=== PATIENT | male | born 1970 | race Caucasian/White ===

== ENCOUNTER 2023-09-21 09:13 | Emergency (ER) | payer OTHER, SELFPAY ==
[2023-09-21 09:23] VITALS: BP 145/87
[2023-09-21 09:32] VITALS: BP 109/76
[2023-09-21 09:43] LABS: Glucose - Point of Care 81 mg/dl (70-99)
[2023-09-21 09:44] LABS: % Eosinophils 0.5 % (0-6); % Immature Granulocytes 0.9 % (0-0.5); % Lymphocytes 13.4 % (20.5-51.1); % Monocytes 8.3 % (1.7-9.3); % Neutrophils 75.9 % (42.2-75.2); Absolute Basophils 0.1 10^3/uL (0-0.2); Absolute Immature Granulocytes 0.1 10^3/uL (0-0.05); Absolute Lymphocytes 1.1 10^3/uL (1.2-3.4); Absolute Monocytes 0.7 10^3/uL (0.1-0.6); Absolute Neutrophils 6.1 10^3/uL (1.4-6.5); Hematocrit 44.2 % (39.0-52.0); Hemoglobin 15.8 g/dL (13.0-18.0); Mean Corp Hgb Conc. 35.7 g/dL (33.0-37.0); Mean Corpuscular Hgb 32.3 pg (27.0-31.0); Mean Corpuscular Volume 90.4 fL (80.0-94.0); Mean Platelet Volume 9.6 fL (7.4-10.4); Nucleated Red Blood Cells % 0 % (-); Platelet Count 297 10^3/uL (130-400); Red Blood Cell Count 4.89 10^6/uL (4.70-6.10); Red Cell Dist. Width 12.3 % (11.5-14.5)
--- NOTE | 2023-09-21 09:48 | ED.GENMED ---
History of Present Illness
<Yolie Collier PA-C - Last Filed: 09/23/23 14:14>
General
Chief Complaint: Breathing Problem
Source: patient
Exam Limitations: none
Time Seen by Provider: 09/21/23 09:31
Nursing documentation reviewed up to this point in time: agreed with
History of Present Illness
History of Present Illness:
Patient is a 53 year old male presenting to the emergency department for evaluation of shortness of breath. Patient states symptoms initially started 2 days ago but are worse last night and he was unable to sleep. He endorses feeling as he cannot
catch his breath. He also endorses a pressure sensation in his left chest. He feels that he is going to faint. Patient states that he feels like he is having an anxiety attack. He does state that he has never had a panic attack quite to this
degree before�but did take a Xanax at home prior to coming to the emergency department.
Patient denies any headache, numbness/tingling in legs, visual changes. Patient denies any abdominal pain. Patient denies any fevers or chills.
Patient denies any personal or family history of cardiovascular disease.
Review of Systems
<Yolie Collier PA-C - Last Filed: 09/23/23 14:14>
Review of Systems
Allergies reviewed?: Yes
All Other Systems: ROS reviewed and negative except as documented in HPI and ROS
Phy Exam
<Yolie Collier PA-C - Last Filed: 09/23/23 14:14>
Physical Exam
Physical Exam:
Vitals: Mildly tachycardic, otherwise vital signs stable
General: Patient is very anxious appearing
Skin: Warm and dry, no rashes or lesions
Head: Normocephalic, atraumatic
Eyes: Sclera nonicteric. EOMs intact. No nystagmus.
Throat: Protecting airway
Neck: Normal ROM, no cervical spine tenderness, no meningismus. Trachea midline
Cardiac: Mildly tachycardic, normal rhythm, no murmurs.
Pulm: Normal respiratory effort, no wheezes, rales, rhonchi heard on exam.
Abdomen: Abdomen soft. No abdominal tenderness.
Extremities: No evidence of cyanosis or edema. Great distal pulses
Neuro: AAOx3. CN II-XII intact. No focal neurologic deficits.
Psychiatric: Anxious.
Scores
<Yolie Collier PA-C - Last Filed: 09/23/23 14:14>
Heart Failure Risk
Heart Failure Risk Score: Not Applicable
Course
<Yolie Collier PA-C - Last Filed: 09/23/23 14:14>
Orders/Labs/Results
Orders:
Orders
09/21/23 09:16
EKG [Electrocardiogram (*1)] Urgent
Reason for Study: Chest Pain
09/21/23 09:17
EKG- Treatment ONCE
09/21/23 09:37
CMP [Comprehensive Metabolic Panel] Urgent
09/21/23 09:38
CBC/With Diff [Complete Blood Count/With Diff] Urgent
TSH Reflex To Free T4 Urgent
Comment: ADD ON
Troponin I Urgent
09/21/23 10:00
0.9% Sodium Chloride 1000 ml [Nss] 1,000 ml IV BOLUS
Lorazepam [Ativan] 1 mg IV NOW STA
09/21/23 10:01
Add On- LAB Urgent
Tests Added?: TSH w/ reflex to T4
09/21/23 10:03
CXR Port [CR Chest Portable - 1 View] Urgent
Comment:
Reason For Exam: sob
Reason Study Needs to be Portable: Unable to Transport
09/21/23 10:12
CT Chest Pe Study Urgent
Comment:
Reason For Exam: shortness of breath, chest pain
Abnormal Lab Results
09/21/23 09/21/23
09:37 09:38
MCH 32.3 H pg
(27.0-31.0)
Abs Immat Gran (auto) 0.1 H 10^3/uL
(0-0.05)
Absolute Lymphs (auto) 1.1 L 10^3/uL
(1.2-3.4)
Absolute Monos (auto) 0.7 H 10^3/uL
(0.1-0.6)
Immature Gran % 0.9 H %
(0-0.5)
Neutrophils % 75.9 H %
(42.2-75.2)
Lymphocytes % 13.4 L %
(20.5-51.1)
Sodium 133 L mmol/L
(135-145)
Carbon Dioxide 31 H mmol/L
(22-30)
BUN 21 H mg/dl
(9-20)
Creatinine 1.8 H mg/dL
(0.7-1.3)
AST 63 H U/L
(17-59)
ALT 64 H U/L
(0-50)
09/21/23 09:38
09/21/23 09:37
Vital Signs
Initial and Last Documented VS:
Initial Vital Signs
Temp Pulse Resp BP Pulse Ox
98.7 F 103 18 145/87 100
09/21/23 09:23 09/21/23 09:23 09/21/23 09:23 09/21/23 09:23 09/21/23 09:23
Last Documented Vital Signs
Temp Pulse Resp BP Pulse Ox
98.7 F 95 14 132/96 96
09/21/23 09:23 09/21/23 13:15 09/21/23 13:15 09/21/23 11:00 09/21/23 12:15
<Brice Eagle MD - Last Filed: 09/21/23 10:35>
Orders/Labs/Results
Orders:
Orders
09/21/23 09:16
EKG [Electrocardiogram (*1)] Urgent
Reason for Study: Chest Pain
09/21/23 09:17
EKG- Treatment ONCE
09/21/23 09:37
CMP [Comprehensive Metabolic Panel] Urgent
09/21/23 09:38
CBC/With Diff [Complete Blood Count/With Diff] Urgent
TSH Reflex To Free T4 Urgent
Comment: ADD ON
Troponin I Urgent
09/21/23 10:00
0.9% Sodium Chloride 1000 ml [Nss] 1,000 ml IV BOLUS
Lorazepam [Ativan] 1 mg IV NOW STA
09/21/23 10:01
Add On- LAB Urgent
Tests Added?: TSH w/ reflex to T4
09/21/23 10:03
CXR Port [CR Chest Portable - 1 View] Urgent
Comment:
Reason For Exam: sob
Reason Study Needs to be Portable: Unable to Transport
09/21/23 10:12
CT Chest Pe Study Urgent
Comment:
Reason For Exam: shortness of breath, chest pain
Abnormal Lab Results
09/21/23 09/21/23
09:37 09:38
MCH 32.3 H pg
(27.0-31.0)
Abs Immat Gran (auto) 0.1 H 10^3/uL
(0-0.05)
Absolute Lymphs (auto) 1.1 L 10^3/uL
(1.2-3.4)
Absolute Monos (auto) 0.7 H 10^3/uL
(0.1-0.6)
Immature Gran % 0.9 H %
(0-0.5)
Neutrophils % 75.9 H %
(42.2-75.2)
Lymphocytes % 13.4 L %
(20.5-51.1)
Sodium 133 L mmol/L
(135-145)
Carbon Dioxide 31 H mmol/L
(22-30)
BUN 21 H mg/dl
(9-20)
Creatinine 1.8 H mg/dL
(0.7-1.3)
AST 63 H U/L
(17-59)
ALT 64 H U/L
(0-50)
09/21/23 09:38
09/21/23 09:37
Vital Signs
Initial and Last Documented VS:
Initial Vital Signs
Temp Pulse Resp BP Pulse Ox
98.7 F 103 18 145/87 100
09/21/23 09:23 09/21/23 09:23 09/21/23 09:23 09/21/23 09:23 09/21/23 09:23
Last Documented Vital Signs
Temp Pulse Resp BP Pulse Ox
98.7 F 95 14 132/96 96
09/21/23 09:23 09/21/23 13:15 09/21/23 13:15 09/21/23 11:00 09/21/23 12:15
<Yolie Collier PA-C - Last Filed: 09/23/23 14:14>
MDM/Problems Addressed
Differential Diagnosis Includes:
Not limited to: Panic attack, hyperthyroidism, thyroid storm, pneumothorax, PE, ACS
MDM/Problems Addressed:
53 year old male presenting with shortness of breath and left-sided chest pressure ongoing for the past 2 days with acute worsening last night. Not exertional. Patient mildly tachycardic on arrival otherwise vital signs are stable. Physical exam
as above. He is extremely anxious appearing. Lungs are clear bilaterally. Heart mildly tachycardic although normal rhythm. No lower extremity edema, erythema, or tenderness. Abdomen soft and nontender. An EKG obtained in triage shows sinus
tachycardia but any acute ischemic changes. A portable chest x-ray was obtained at bedside without any acute abnormalities. No pneumothorax.
Highly suspicious for panic attack/anxiety as etiology of shortness of breath although will obtain labs and CTA chest to rule out other cardio/pulmonary etiologies. Will give patient 1 mg IV Ativan. Closely monitor and reassess.
Labs noted. Renal insufficiency noted on labs with a creatinine of 1.8 and mildly decreased GFR. There is no prior values to compare to. Patient was given a liter of IV fluids. Troponin is normal. Given symptoms started initially 2 days
ago�this is sufficient to rule out acute IN. TSH is also within normal limits. CTA chest shows no acute cardio/pulmonary abnormalities.
Patient is much more calm and feels much better following Ativan. Workup here has been essentially negative. Suspect symptoms likely related to anxiety/panic attack. Did discuss renal insufficiency with patient and after discussion feel this may
be related to patient's supplements he takes for working out. Advised patient to avoid any further creatine/workout supplements, NSAIDs, other nephrotoxins at this time. He will follow-up with his primary care provider for further
evaluation/repeat lab work. Instructed patient to take Xanax as he has been prescribed his PCP at home. Return precautions discussed. Patient seen with attending physician
Chronic conditions affecting care:
N/A
Acute Exacerbation and/or Progression of Chronic Illness:
N/A
<Yolie Collier PA-C - Last Filed: 09/23/23 14:14>
*Radiology
Radiology exam reviewed: preliminary read by ED provider (No acute disease) and radiology read reviewed
*Pulse Oximetry
Patient hypoxic: no
*EKG
Interpreted by ED Provider?: Yes
EKG Intrepretation Date: 09/21/23
Interpretation: abnormal
Comparison EKG: no comparison EKG present
Heart Rate: 103
Rate: tachycardiac
Rhythm: sinus
[place]: normal axis
Interval: normal interval
QRS Pattern: normal QRS
Ischemia: no ischemia
*Landscape Gardener Interpretation
Rate: tachycardiac
Interpretation: abnormal
Heart Rate: 108
Rhythm: sinus
*Critical Care Note
Total Time (30-74mins, 75-104mins- exclusive of procedures): Not Applicable
ED Attending Note
<Yolie Collier PA-C - Last Filed: 09/23/23 14:14>
-
Portions of this chart may have been created with voice recognition software.� Occasional wrong word or��sound alike� substitutions may have occurred due to the inherent limitations of voice recognition software.
<Brice Eagle MD - Last Filed: 09/21/23 10:35>
ED Attending Note
Patient seen and examined by attending physician: Yes
I performed the substantive portion of visit, reviewed & personally made and approve the management plan that is documented in note by myself or NEYMAR.: Yes
ED Attending Note:
53-year-old male shortness of breath chest pain that started 2 days ago. Relatively constant. Feels like he cannot catch his breath. Very anxious. States he wants something for panic. No history of same. Has been continuous for this time.
On exam patient is nontoxic-appearing but very anxious jittery. He is warm and dry. He is perfusing well. No diaphoresis. Lungs are clear and equal. Heart regular rate and rhythm with no murmur. Abdomen is nontender. Extremities unremarkable.
EKG is borderline sinus tach with no acute changes. Pertinent labs have a creatinine of 1.8. Cardiac testing is normal. Chest x-ray is unremarkable. Given patient's shortness of breath warrants a PE study. Seems somewhat improved with Ativan.
Etiology at this time uncertain
Discharge Plan
Departure
Patient Disposition: Home (Routine Discharge)
Date of Disposition: 09/21/23
Time of Disposition: 13:25
Patient with high blood pressure during this ER visit?: Yes
Condition: Good
Covid-19: Not Applicable
Discharge Problem:
Panic attack
Instructions: Anxiety, Adult ED, Shortness of Breath, Adult ED, Panic Attack ED
Prescriptions:
No Action
lorazepam [Ativan] 1 mg tablet
1 mg PO BID PRN (Reason: anxiety) Qty: 7 0RF
Referrals:
Nate Sanchez MD [Family Provider] - Follow up in 5-7 days
Activity Restrictions/Additional Instructions:
RETURN TO THE EMERGENCY DEPARTMENT WITH ANY FEVERS, CHEST PAIN, SHORTNESS OF BREATH, PERSISTENT DIZZINESS/LIGHTHEADEDNESS, WORSENING IN CURRENT SYMPTOMS, OR ANY OTHER CONCERNS
-As discussed�your kidney function was slightly elevated while in the emergency department today. You should avoid taking any creatine supplements. You should avoid any NSAIDs including Advil, Motrin, Aleve, naproxen. It is important that you
stay well-hydrated. You should follow-up with your primary care doctor in a few days for further evaluation/management. You should have repeat blood work to trend these values.
-You can take your Xanax as prescribed by your primary care provider for any repeat in anxiety/panic attack.
Monitor your symptoms closely return to the emergency department any acute worsening/new symptoms
Interventions
Interventions:
*Risk Screen - Suicide Last Done: 09/21/23 09:23
*General Assessment Last Done: 09/21/23 09:23
*Neglect/Abuse Screening Last Done: 09/21/23 09:23
*Nursing Disposition Last Done: 09/21/23 14:29
ED- Cardiac Assessment Last Done: 09/21/23 09:35
ED- Pulmonary Assessment Last Done: 09/21/23 09:35
Discharge Date and Time
Discharge Date/Time: 09/21/23 14:30
Print Language: CYMRO
[2023-09-21 09:59] LABS: ALT (SGPT) 64 U/L (0-50); AST (SGOT) 63 U/L (17-59); Albumin 4.1 g/dl (3.5-5.0); Alkaline Phosphatase 89 U/L (38-126); Blood Urea Nitrogen 21 mg/dl (9-20); Calcium 9.3 mg/dl (8.4-10.2); Carbon Dioxide 31 mmol/L (22-30); Chloride 98 mmol/L (98-107); Glucose 88 mg/dl (70-99); Sodium 133 mmol/L (135-145); Total Bilirubin 0.8 mg/dl (0.2-1.3); Total Protein 6.6 g/dl (6.3-8.2)
[2023-09-21 10:00] VITALS: BP 125/93
[2023-09-21 10:10] LABS: Troponin I < 0.012 ng/ml
[2023-09-21] MEDS: ATIVAN 1 MG IV (10:12)
[2023-09-21] MEDS: NSS 1000 IV (10:15)
[2023-09-21 11:00] VITALS: BP 132/96
[2023-09-21 12:31] LABS: TSH Reflex To Free T4 1.35 uIU/ml (0.47-4.68)
== END 2023-09-21 14:30 | disposition home or self-care (01) ==
LOC: EMR 09:13
PROVIDERS: EMERGENCY PHYSICIAN Emergency Medicine; FAMILY PHYSICIAN Internal Medicine
DX: F41.0 Panic disorder [episodic paroxysmal anxiety] (principal)
CPT/HCPCS: 99284; 96374; 96361; 71045; 71275; 80053; 80306; 82962; 84443; 84484; 85025; 87811; 93005; Q9967

== ENCOUNTER 2023-09-21 22:52 | Emergency (ER) | payer OTHER, SELFPAY ==
[2023-09-21 22:52] VITALS: BMI 25.5
[2023-09-21 22:55] VITALS: BP 124/82
[2023-09-21 23:15] VITALS: BP 122/79
--- NOTE | 2023-09-21 23:17 | ED.GENMED ---
History of Present Illness
<LUKAS Blandon - Last Filed: 09/22/23 01:04>
General
Chief Complaint: Breathing Problem
Time Seen by Provider: 09/21/23 23:01
History of Present Illness
History of Present Illness:
Pt is a 53 y/o male with no significant PMHx presenting for chest pain and SOB x2 days. He states that two nights ago he started to feel warm and diaphoretic. He states he then had chest pressure across his entire chest. He said it does not radiate
anywhere and it feels like somebody is sitting on his chest and it is worse when laying supine. He states it feels like he cannot breath due to this pressure. He also states he is experiencing dizziness when laying flat that goes away while sitting
up. He notes he has not been able to sleep in 3 days. He was seen this morning in the ED for the same symptoms. He states he was given Ativan and was able to sleep for an hour which mildly alleviated symptoms. He states when he got home he the
symptom came back. He denies ever having symptoms like this in the past. He states he drinks alcohol on weekends only and does not smoke or use any illicit drugs. He denies any headaches, mental status changes, abdominal pain, nausea, vomiting,
change in bowel habits, urinary symptoms, or edema.
Phy Exam
<LUKAS Blandon - Last Filed: 09/22/23 01:04>
Physical Exam
Physical Exam:
GENERAL: Patient is anxious appearing.
EYE: pupils equal and reactive. Nonicteric
Throat: Airway intact, no exudates
NECK: Supple, no significant adenopathy.
CARDIAC: Mildly tachycardic. Normal rhythm with no apparent murmurs.
LUNGS: Clear breath sounds bilaterally, no acute respiratory distress, no wheezes/rales/rhonchi
ABDOMEN: Soft, nondistended, nontender, no cvat
NEUROLOGICAL: Alert and oriented, no focal neuro deficits. No meningeal signs.
SKIN: Warm and dry, skin intact.
MUSCULOSKELETAL: No edema, well perfused.
PSYCH: Normal and appropriate interaction.
Scores
<LUKAS Blandon - Last Filed: 09/22/23 01:04>
Heart Failure Risk
Heart Failure Risk Score: Not Applicable
Course
<LUKAS Blandon - Last Filed: 09/22/23 01:04>
Orders/Labs/Results
Orders:
Orders
09/21/23 23:00
ECG [Electrocardiogram (*1)] Urgent
Reason for Study: Shortness of Breath
Cardiology Consult: Unknown
09/21/23 23:01
EKG- Treatment ONCE
09/21/23 23:34
Troponin I Urgent
09/21/23 23:45
COVID-19 Antigen Urgent
Source: Nasal Swab
09/21/23 23:50
Fentanyl, Urine Urgent
Urine Drug Abuse Screen Urgent
Date Specimen was Collected: 09/21/23
Time Specimen was Collected: 23:46
09/22/23 00:11
Lorazepam [Ativan] 1 mg PO NOW STA
Abnormal Lab Results
09/21/23
23:50
U Benzodiazepines Scrn Positive H
(Negative)
Vital Signs
Initial and Last Documented VS:
Initial Vital Signs
Temp Pulse Resp BP Pulse Ox
97.8 F 100 20 124/82 98
09/21/23 22:55 09/21/23 22:55 09/21/23 22:55 09/21/23 22:55 09/21/23 22:55
Last Documented Vital Signs
Temp Pulse Resp BP Pulse Ox
97.8 F 91 19 115/87 96
09/21/23 22:55 09/22/23 00:31 09/22/23 00:31 09/22/23 00:08 09/22/23 00:31
<Sabas Mccloud DO - Last Filed: 09/22/23 00:53>
Orders/Labs/Results
Orders:
Orders
09/21/23 23:00
ECG [Electrocardiogram (*1)] Urgent
Reason for Study: Shortness of Breath
Cardiology Consult: Unknown
09/21/23 23:01
EKG- Treatment ONCE
09/21/23 23:34
Troponin I Urgent
09/21/23 23:45
COVID-19 Antigen Urgent
Source: Nasal Swab
09/21/23 23:50
Fentanyl, Urine Urgent
Urine Drug Abuse Screen Urgent
Date Specimen was Collected: 09/21/23
Time Specimen was Collected: 23:46
09/22/23 00:11
Lorazepam [Ativan] 1 mg PO NOW STA
Abnormal Lab Results
09/21/23
23:50
U Benzodiazepines Scrn Positive H
(Negative)
Vital Signs
Initial and Last Documented VS:
Initial Vital Signs
Temp Pulse Resp BP Pulse Ox
97.8 F 100 20 124/82 98
09/21/23 22:55 09/21/23 22:55 09/21/23 22:55 09/21/23 22:55 09/21/23 22:55
Last Documented Vital Signs
Temp Pulse Resp BP Pulse Ox
97.8 F 91 19 115/87 96
09/21/23 22:55 09/22/23 00:31 09/22/23 00:31 09/22/23 00:08 09/22/23 00:31
<LUKAS Blandon - Last Filed: 09/22/23 01:04>
*Pulse Oximetry
Patient hypoxic: no
*EKG
Interpreted by ED Provider?: Yes
EKG Intrepretation Date: 09/22/23
Interpretation: normal
Comparison EKG: changes noted (Patient was in sinus tachycardia on EKG 09/21/23 at 0921. Patients EKG 09/21/23 at 2321 does not show tachycardia.)
Heart Rate: 99
Rate: normal
Rhythm: sinus
[place]: normal axis
Interval: normal interval
QRS Pattern: normal QRS
Ischemia: no ischemia
*Air Valve Repairer Interpretation
Rate: Air Valve Repairer- N/A
*Critical Care Note
Total Time (30-74mins, 75-104mins- exclusive of procedures): Not Applicable
<Sabas Mccloud DO - Last Filed: 09/22/23 00:53>
Update Note
Update Note:
Patient resting comfortably. My physical exam showed no obvious respiratory distress. Lungs were completely clear bilaterally without wheezes rales or rhonchi present. He had no problems with deep inspiration. CT angiogram was normal earlier
today. No further imaging necessary at this point as patient states that his symptoms have not changed at all since the initial imaging.
ED Attending Note
<LUKAS Blandon - Last Filed: 09/22/23 01:04>
-
Portions of this chart may have been created with voice recognition software.� Occasional wrong word or��sound alike� substitutions may have occurred due to the inherent limitations of voice recognition software.
<Sabas Mccloud DO - Last Filed: 09/22/23 00:53>
ED Attending Note
Patient seen and examined by attending physician: Yes
I performed the substantive portion of visit, reviewed & personally made and approve the management plan that is documented in note by myself or NEYMAR.: Yes
ED Attending Note:
Pleasant 53-year-old male presents with chest pain and shortness of breath for the last 2 days. Patient was seen in the emergency department earlier today and had a thorough workup including negative CT angiogram. Patient went home and stated that
his symptoms persisted. Patient states that he has not been able to sleep for the last 3 days. Prior to that he took Kratom for anxiety. Patient denies any current chest pain. He states that he cannot take a deep breath. He is requesting
Ativan. Patient was seen in conjunction with the PA student. I have reviewed and agree with the history and treatment plan presented. On my independent physical exam, patient is awake, alert, and oriented x3. Heart is regular rate and rhythm.
Lungs are clear to auscultation bilaterally with no wheezes rales or rhonchi.
Discharge Plan
Departure
Patient Disposition: Home (Routine Discharge)
Date of Disposition: 09/22/23
Time of Disposition: 00:50
Patient with high blood pressure during this ER visit?: Yes
Discharge Problem:
Anxiety, Dyspnea, subjective dyspnea
Instructions: Anxiety, Adult ED
Prescriptions:
New
lorazepam [Ativan] 1 mg tablet
1 mg PO BID PRN (Reason: anxiety) Qty: 7 0RF
Referrals:
[facility] [Outside]
Ronald Goyal MD [Active] - As needed
UNKNOWN - PT DOES,NOT KNOW [Family Provider] -
Activity Restrictions/Additional Instructions:
It was a pleasure meeting you and taking part in your care. We hope for your continued healing and wellness.
Please read discharge instructions in their entirety. However, they are for general education and may not describe your exact diagnosis at discharge. Information on your ER visit and medical conditions were discussed with you along with appropriate
follow up information...
If indicated, please take your medications as instructed and indicated on discharge paperwork.
Please schedule a follow up appointment as directed. Call to schedule an appointment
Please return to the emergency department with ANY change in, persisting, or worsening of symptoms. If any of your symptoms do not improve, or persist, or become more severe within 6-12 hours, please return to the emergency department for further
care.
Please return to the emergency department if you develop a headache, neck pain/stiffness, fever greater than 100.4F, chest pain, shortness of breath, persistent nausea, vomiting, slurred speech, difficulty walking, numbness/tingling, weakness, signs
of infection or any other symptoms that are worrisome to you.
If you have any questions or concerns please do not hesitate to call the Hospital at or E-mail me directly at [email or web address]
Interventions
Interventions:
*Risk Screen - Suicide Last Done: 09/21/23 22:55
*General Assessment Last Done: 09/21/23 22:55
*Neglect/Abuse Screening Last Done: 09/21/23 22:55
ED- Fall Risk Assessment Last Done: 09/21/23 22:55
*ED COVID-19 Vaccine History Last Done: 09/21/23 22:55
*Nursing Disposition Last Done: 09/22/23 00:46
ED- Cardiac Assessment Last Done: 09/21/23 23:25
ED- Pulmonary Assessment Last Done: 09/21/23 23:25
Discharge Date and Time
Print Language: TURKISH
[2023-09-22 00:01] VITALS: BP 120/81
[2023-09-22 00:08] VITALS: BP 115/87
[2023-09-22 00:08] LABS: Troponin I < 0.012 ng/ml
[2023-09-22 00:10] LABS: COVID-19 Antigen Negative (Negative)
[2023-09-22 00:10] LABS: Amphetamines Negative (Negative); Barbiturates Negative (Negative); Benzodiazepines Positive (Negative); Buprenorphine Negative (Negative); Cocaine Negative (Negative); Marijuana Negative (Negative); Methadone Negative (Negative); Methamphetamines Negative (Negative); Opiates Negative (Negative); Phencyclidine Negative (Negative); Tricyclic Antidepressants Negative (Negative)
[2023-09-22] MEDS: ATIVAN 1 MG PO (00:14)
[2023-09-22 00:28] LABS: Fentanyl, Urine Negative (Negative)
== END 2023-09-22 01:07 | disposition home or self-care (01) ==
LOC: EMR 22:52
PROVIDERS: EMERGENCY PHYSICIAN Student in an Organized Health Care Education/Training Program
DX: F41.9 Anxiety disorder, unspecified (principal); R06.00 Dyspnea, unspecified
CPT/HCPCS: 99283; 80306; 80307; 84484; 87811; 93005

== ENCOUNTER 2024-08-26 09:28 | Inpatient (IN) | payer OTHER, SELFPAY ==
[2024-08-26] VITALS (21 sets, daily range): BP systolic 118–170; BP diastolic 63–111; BMI 25.8; BMI 27.4
[2024-08-26] MEDS: ATIVAN 2 MG IV ×4 (02:11→20:50)
[2024-08-26] MEDS: NSS 1000 IV ×2 (02:12→12:04)
[2024-08-26 02:17] LABS: Hematocrit 43.8 % (39.0-52.0); Hemoglobin 15.5 g/dL (13.0-18.0); Mean Corp Hgb Conc. 35.4 g/dL (33.0-37.0); Mean Corpuscular Volume 92.8 fL (80.0-94.0); Nucleated Red Blood Cells % 0 % (-); Platelet Count 241 10^3/uL (130-400); Red Cell Dist. Width 13.0 % (11.5-14.5)
[2024-08-26 02:36] LABS: ALT (SGPT) 40 U/L (0-50); AST (SGOT) 56 U/L (17-59); Acetaminophen < 10 ug/ml (10-30); Albumin 4.1 g/dl (3.5-5.0); Alkaline Phosphatase 79 U/L (38-126); Blood Urea Nitrogen 13 mg/dl (9-20); Calcium 8.9 mg/dl (8.4-10.2); Carbon Dioxide 30 mmol/L (22-30); Chloride 103 mmol/L (98-107); Glucose 104 mg/dl (70-99); Potassium 3.0 mmol/L (3.5-5.1); Salicylate < 1.0 mg/dl (2.0-20.0); Sodium 140 mmol/L (135-145); Total Protein 6.8 g/dl (6.3-8.2); eGFR 50.26
--- NOTE | 2024-08-26 02:51 | ED.GENMED ---
History of Present Illness
General
Chief Complaint: Overdose Intentional
Source: patient and spouse
Exam Limitations: altered mental status
Time Seen by Provider: 08/26/24 02:14
Nursing documentation reviewed up to this point in time: agreed with
History of Present Illness
History of Present Illness:
This is a 54-year-old gentleman with history of anxiety who was brought to the ED by with concern for erratic/agitated behavior tonight and she states he has been 'falling all over the place tonight'
She adds that he is addicted to kratom and is unsure if he took extra kratom tonight or perhaps something else but notes that he has never acted as erratic and agitated as he is tonight.
According to PDMP. Patient was prescribed Valium 30 tablets August 01 and then additional 60 tablets August 20. Valium was prescribed by his PCP.
He is also prescribed testosterone sporadically in September, January and most recently May of this year along with a prescription for Pregnyl May of this year.
Patient arrives via private vehicle, his driving. He is quite anxious, agitated, restless and poorly cooperative. Able to briefly be redirected but remains significantly agitated requiring multiple personnel at bedside to assist with calming
patient and initially required 4 point restraints for patient as well as staff safety.
He denies wanting to hurt himself but cannot elaborate as to what he has taken tonight.
According to , rarely drinks alcohol.
There has been no report of fever recently, no cough. He has had a few loose stools yesterday but no vomiting. According to he has not been complaining of pain.
Past History
Past History
ED Past Medical History: Psychiatric
Social History
Alcohol: Occasional
Drug: Other (Kratom)
Personal:
Living: with family
Employment: Employed
Family History
Family History: Unable to obtain
Phy Exam
Physical Exam
Physical Exam:
GENERAL: 54-year-old gentleman appears his stated age, awake, significantly agitated, anxious, poorly cooperative. Mildly tachycardic. Afebrile. Normal pulse ox. Minimally elevated blood pressure
EYE: pupils equal and reactive. anicteric
NECK: Supple, nontender, no meningismus, no significant adenopathy.
ENT: posterior pharynx is clear, oral mucosa is dry. No rhinorrhea.
CARDIAC: Regular rhythm, mildly tachycardic. no murmur.
LUNGS: Clear breath sounds bilaterally, mild tachypnea with agitation, no wheezes/rales/rhonchi
ABDOMEN: Soft, nondistended, without focal tenderness, no r/g, no cvat. normoactive BS.
NEUROLOGICAL: Awake and alert, significantly agitated, no focal neurodeficits.
SKIN: Warm and dry, normal color, skin intact. No rash.
MUSCULOSKELETAL: No C/C/E. peripheral pulses are full and equal b/l. No palpable tenderness.
PSYCH: Significantly anxious, agitated.
Course
Orders/Labs/Results
Orders:
Orders
08/26/24 02:00
Restraints - Violent As Directed
Restraint Type-: Locked-4 point/4 rails
Apply From (date): 08/26/24
Apply from (time): 02:00
Remove (date): 08/26/24
Remove (time): 06:00
08/26/24 02:05
Lorazepam [Ativan] 2 mg .ROUTE .STK-MED ONE
08/26/24 02:06
Electrocardiogram (*1) Urgent
Reason for Study: Other
Other Reason for Exam: Potential overdose
Bedside Glucose- Treatment ONCE
Cardiac Monitoring- Treatment ONCE
EKG- Treatment ONCE
IV Insert/Care/Rem.- Treatment PRN
Pulse Ox/spot Check [RESP] Urgent
Quantity: 1
08/26/24 02:07
Acetaminophen Urgent
Alcohol Urgent
Complete Blood Count/With Diff Urgent
Comprehensive Metabolic Panel Urgent
Creatine Phosphokinase Urgent
Comment: ADDED
Salicylate Urgent
08/26/24 02:10
Lorazepam [Ativan] 2 mg IV NOW STA
08/26/24 02:11
0.9% Sodium Chloride 1000 ml [Nss] 1,000 ml IV BOLUS
08/26/24 02:16
Lorazepam [Ativan] 2 mg IV NOW STA
08/26/24 02:25
Add On- LAB Urgent
Tests Added?: CPK
08/26/24 02:48
Haloperidol Lactate [Haldol] 2 mg IV NOW STA
08/26/24 02:49
CT Head W/o Iv Contrast Urgent
Comment:
Reason For Exam: agitation, multiple falls tonight
08/26/24 02:50
KCl 40 Meq/0.9%Sodchl 1000 ml [NSS with KCL 40 MEQ] 40 meq in 1,000 ml IV 250 mls/hr
08/26/24 04:10
1:1 Observation - Suicide/ Violent Behavior As Directed
08/26/24 06:00
Straight Cath As Directed
Frequency: One time now
Restraints - Violent As Directed
Restraint Type-: Locked-4 point/4 rails
Apply From (date): 08/26/24
Apply from (time): 06:00
Remove (date): 08/26/24
Remove (time): 10:00
08/26/24 06:10
Fentanyl, Urine Urgent
Urinalysis Reflex To Culture Urgent
Date Specimen was Collected: 08/26/24
Time Specimen was Collected: 06:15
Urine Drug Abuse Screen Urgent
Date Specimen was Collected: 08/26/24
Time Specimen was Collected: 06:08
Urine Microscopic Reflex Cult Urgent
08/26/24 06:14
1:1 Observation - Suicide/ Violent Behavior As Directed
08/26/24 06:17
Add On- LAB Urgent
Tests Added?: urinalysis
Abnormal Lab Results
08/26/24 08/26/24
02:07 06:10
MCH 32.8 H pg
(27.0-31.0)
Abs Immat Gran (auto) 0.1 H 10^3/uL
(0-0.05)
Absolute Neuts (auto) 8.4 H 10^3/uL
(1.4-6.5)
Absolute Lymphs (auto) 0.8 L 10^3/uL
(1.2-3.4)
Absolute Monos (auto) 0.8 H 10^3/uL
(0.1-0.6)
Immature Gran % 1.4 H %
(0-0.5)
Neutrophils % 81.7 H %
(42.2-75.2)
Lymphocytes % 8.1 L %
(20.5-51.1)
Potassium 3.0 L mmol/L
(3.5-5.1)
Creatinine 1.6 H mg/dL
(0.7-1.3)
Glucose 104 H mg/dl
(70-99)
Creatine Kinase 634 H U/L
(55-170)
Urine Albumin (Reflex) 1+ A
(Neg - Trace)
Salicylates < 1.0 L mg/dl
(2.0-20.0)
Acetaminophen < 10 L ug/ml
(10-30)
U Benzodiazepines Scrn Positive H
(Negative)
08/26/24 02:07
08/26/24 02:07
Vital Signs
Initial and Last Documented VS:
Initial Vital Signs
Pulse Ox
99
08/26/24 02:19
Last Documented Vital Signs
Temp Pulse Resp BP Pulse Ox
98.6 F 107 26 142/78 99
08/26/24 06:00 08/26/24 06:15 08/26/24 06:15 08/26/24 06:15 08/26/24 06:52
MDM/Problems Addressed
Differential Diagnosis Includes:
Patient presents with altered mental status, anxious, agitated, mildly tachycardic, mildly hypertensive. History of kratom use according to . No history of similar episodes in the past.
Concern for toxic ingestion, substance abuse, concern for acute encephalopathy, closed head injury.
IV established and patient has been given 2 mg of IV Ativan, will initiate IV fluids, check labs including alcohol, salicylate, acetaminophen, urine drug screen.
There has been no reported fever nor headache and patient is currently afebrile. Meningoencephalitis is unlikely.
Chronic conditions affecting care: Psychiatric illness
*Radiology
Radiology exam reviewed: radiology read reviewed (CT of the head is unremarkable)
*Pulse Oximetry
SaO2: 99
Oxygen Mode of Delivery: Room air
Patient hypoxic: no
*EKG
Interpreted by ED Provider?: Yes
Interpretation: normal
Rate: tachycardiac
Rhythm: sinus
[place]: normal axis
Interval: normal interval
QRS Pattern: normal QRS
Ischemia: no ischemia
*Wool Shearing Supervisor Interpretation
Rate: tachycardiac
Interpretation: abnormal
Rhythm: sinus
*Critical Care Note
Total Time (30-74mins, 75-104mins- exclusive of procedures): 30
comment:
Critical care statement: A total of 30 minutes of critical care time was provided for this patient. This includes management of unstable vital signs, evaluation of the patient at bedside, reviewing the patient's pertinent medical records, discussion
with consultants, review of old EKGs and review of pertinent medical records. This time with separate from time utilized to perform the aforementioned documented procedures
Update Note
Update Note:
Patient required 2 doses of IV Ativan and a dose of IV Haldol for sedation. He is now drowsy, intermittent brief agitation.
Labs are unremarkable save for mild hypokalemia at 3.0. Mildly elevated creatinine of 1.6, similarly elevated September 2023 at 1.8.
CPK is mildly elevated 634.
Salicylate, acetaminophen, EtOH are all negative. UDS is positive only for benzodiazepine.
CT of the head is unremarkable.
Due to continued agitation, encephalopathy patient will require acute hospitalization for continued observation.
IV normal saline Infusing. IV normal saline with potassium infusing as well.
He remains hemodynamically stable, sinus tachycardia has improved. He remains afebrile.
ED Attending Note
-
Portions of this chart may have been created with voice recognition software.� Occasional wrong word or��sound alike� substitutions may have occurred due to the inherent limitations of voice recognition software.
Discharge Plan
Departure
Patient Disposition: Admit
Date of Disposition: 08/26/24
Time of Disposition: 06:58
Admit to: IMU
Presentation/result/management discussed w/ accepting MD/DO: Hospitalist
Condition: Fair
Discharge Problem:
agitated delerium
Prescriptions:
No Action
lorazepam [Ativan] 1 mg tablet
1 mg PO BID PRN (Reason: anxiety) Qty: 7 0RF
Referrals:
UNKNOWN - PT DOES,NOT KNOW [Family Provider]
Interventions
Interventions:
*Risk Screen - Suicide Last Done: 08/26/24 01:56
*Neglect/Abuse Screening Last Done: 08/26/24 01:56
ED- Cardiac Assessment Last Done: 08/26/24 02:40
ED- Neurological Assessment Last Done: 08/26/24 02:40
ED-Psychological Assessment Last Done: 08/26/24 02:40
ED- Pulmonary Assessment Last Done: 08/26/24 02:40
Discharge Date and Time
Print Language: JAPANESE
[2024-08-26] MEDS: HALDOL 2 MG IV (02:52)
[2024-08-26] MEDS: NSS with KCL 40 MEQ 1000 IV (03:05)
[2024-08-26 06:39] LABS: Urine Character Clear (Clear)
[2024-08-26 07:49] LABS: Urine Squamous Cell 0-2 /LPF (Few)
[2024-08-26 07:50] LABS: Urine Red Blood Cell 0-2 /HPF (0-2); Urine White Cell 0-2 /HPF (0-5)
--- NOTE | 2024-08-26 09:35 | CM ---
CM reviewed chart, met with brother bedside in ED and spoke to his over the phone.
Pt lives with his in 2 story home, [address], first floor half BA, second floor BR/full BA
Independent in ADLs, personal care and ambulation at baseline. no DME.
PCP: Dr Amaya with [facility]
Pharmacy: [facility] and [address] [place] [id number]
CM will continue to follow for all discharge planning needs.
--- NOTE | 2024-08-26 10:34 | EDRN ---
this RN called the receiving IMU nurse Gunnar PIERRE and gave verbal report
[2024-08-26] MEDS: SUBUTEX 4 MG SL (11:43)
--- NOTE | 2024-08-26 11:49 | PTCARENOTE ---
Pt received as admit from ED. AAOx2. Disoriented to time. Pt endorses feeling 'very anxious'. Pt restless in bed and unable to stay in one position for short periods of time. ST on tele, HRs 100s-110s. SpO2 99% on room air. BP 130/80. COWS score 18
on admission. 4mg Subutex ordered and given. Pt denies any suicidal ideations at this time. He claims he took 2-3 times the normal dose of Kratom to help relieve anxiety. One to one observation in place at this time. Bed alarm in place. Pt brother
at bedside. Assessment documented.
[2024-08-26] MEDS: BELBUCA BUCCAL ×2 (12:03→12:14)
[2024-08-26] MEDS: OXYCONTIN (CONTROLLED RELEASE) 40 MG PO ×2 (12:03→19:28)
--- NOTE | 2024-08-26 12:30 | PTCARENOTE ---
Attempted to administer Belbuca oral patch. Educated pt to hold yellow side of film on inside of cheek for 5 seconds and than wait for film to dissolve. Pt proceeded to spit film out onto floor after held into cheek by RN. Provider aware.
--- NOTE | 2024-08-26 12:56 | PTCARENOTE ---
Shaquille patch wasted with second RN.
[2024-08-26] MEDS: VALIUM INJECTION 5 MG IV ×3 (13:40→22:10)
[2024-08-26] MEDS: BELBUCA 300 MCG BUCCAL ×3 (15:02→23:49)
--- NOTE | 2024-08-26 15:04 | CS.PSYCHR ---
Consult Summary - Psychiatry
-
Pt is a 54 yo male brought to the ED by with concern for erratic/agitated behavior tonight and reportedly 'falling all over the place.' reported pt is addicted to kratom and is unsure if he took extra kratom tonight or something else.
This is reportedly new behavior for this pt. Pt was prescribed Valium 5 mg #30 08/01 and #60 on 08/20/24, by PCP. reported pt rarely drinks alcohol.
Pt presented anxious, agitated, restless and poorly cooperative. Pt seen in bed, restless, c/o pain, stomach upset/nausea, 'jumping out of my skin.' Pt making eye contact, sensorium appears intact.
Psych hx: denied
MSE: alert, oriented, restless/agitated, answering questions, asking for something to relieve withdrawal. No signs of psychosis. Insight appears limited
Imp: Kratom Use, severe
Rec: Will try Subutex, since Kratom has opioid effects, and pt is alreadly having a degree of withdrawal. Would consider opioid withdrawal protocol
Will follow peripherally
--- NOTE | 2024-08-26 17:06 | HPS.HSE ---
Addendum entered and electronically signed by Jessica Morris MD 08/26/24 18:19:
I personally performed a history and physical exam of the patient and discussed management with the resident. I reviewed the resident's note and agree with the documented findings and plan of care HPI/CC.
GENERAL: well developed, well nourished, male agitated, trying to get off the stretcher--was in 4 point leather restraints off since 7:30 AM
HEENT: NC/AT
HEART: regular rate and rhythm, +S1, +S2
LUNGS : clear to auscultation bilaterally
ABDOM: soft, nontender, nondistended, + bowel sounds
EXT: no cyanosis, clubbing, or edema
NEUROLOGIC: confused--not oriented--moves all extremities
Altered mental status--agitated, likely opioid like withdrawal from Kraton withdrawal (takes high doses which acts like opioids at higher doses)--was in 4 point leather restraints--ADMIT to IMU with LOW THRESHOLD to move to ICU--Requiring multiple
rounds of benzos without relief of agitation--head CT neg--Dr. Leroy spoke with poison control, cont benzos with possibility of doubling dose and AVOIDING HALDOL--again low threshold to move to ICU--apprec psych--await neuro input--cont 1:1--Cannot
rule out seizures, withdrawal, or overdose of kratom--may need precedex--cont opioid WD protocol--cont subutex
Hypokalemia--replete--check mag
STEPH with mild rhabdo--nontraumatic--follow CPK with IVF--n/v/d also contributing to prerenal etiology
DVT proph
CODE STATUS--Full code
Original Note:
Family Physician
-
Family Physician: Brice Amaya (?)
Chief Complaint
-
Altered Mental Status
History of Present Illness
Mr. Anderson is a 54-year-old gentleman with history of anxiety who was brought to the ED by with concern for erratic/agitated behavior tonight 08/13 3 and she states he has been 'falling all over the place tonight' with no head trauma. She adds
that he is addicted to kratom and is unsure if he took extra kratom tonight or perhaps something else but notes that he has never acted as erratic and agitated as he is tonight. He left late last night to drive and acquire some kratom from a local
gas station but was unable to find some. According to him his last kratom use was earlier in the day of 08/25, where he took 1-1/2 30 mL bottles of kratom. The the serving size is 5 mL. According to this has been a issue for him and was
hospitalized last year for similar symptoms due to kratom use. reports that this has been an ongoing issue for many years and does not remember when he started using. He denies wanting to hurt himself but cannot elaborate as to what he has
taken tonight. According to , rarely drinks alcohol but does not know if he ingested any. There has been no report of fever recently, no cough. He has had a few loose stools for 2 days but no vomiting. According to he has not been
complaining of pain. According to PDMP. Patient was prescribed Valium 30 tablets August 01 and then additional 60 tablets August 20. Valium was prescribed by his PCP. He is also prescribed testosterone sporadically in September, January and most recently
May of this year along with a prescription for Pregnyl May of this year. In the ED he is quite anxious, agitated, restless and poorly cooperative. Able to briefly be redirected but remains significantly agitated requiring multiple personnel at
bedside to assist with calming patient and initially required 4 point restraints for patient as well as staff safety. He required Ativan 3 times and Haldol one-time. He still remained agitated. He was tachycardic tachypneic hypertensive with a
normal temperature. Labs showed a sodium of 140 potassium of 3.0 chloride 103 bicarb 30 BUN 13 creatinine 1.6 CPK 634 and a positive benzodiazepine screen on UDS. CT head showed no intracranial abnormalities. EKG showed sinus tachycardia with a
QTc of 482. Patient was admitted to IMU and started on opioid withdrawal protocol. Psychiatry was consulted along with neurology. Poison control was called and recommended sedation with avoidance of Haldol and increasing benzodiazepines doubling
it every administration until agitation is controlled.
Medical History
Past Medical History
Past Medical History: Reports Psychiatric (Anxiety)
Additional Past Medical History:
Anxiety
Past Surgical History: Reports Appendectomy
Social History
Unable to obtain full social history at this time due to: Acuity
Tobacco: Non-smoker
Alcohol: Occasional
Drug: None
Personal:
Living: With Family
Employment: Employed (Works at [employer])
Family History
Family History: Not pertinent
Allergies / Home Medications
Allergies reflects when Allergies were last updated in [facility].
Home Medications with original date entered in [facility]
Allergy/Medication List:
Allergies
Allergy/AdvReac Type Severity Reaction Status Date / Time
No Known Allergies Allergy Verified 08/26/24 01:56
Home Medications
diazepam 5 mg tablet 5 mg PO BIDPRN PRN anixety 08/26/24
Review of Systems
-
Unable to obtain full review of systems at this time due to: Acuity
History Source: Patient and Family
Constitutional: Reports Sleep Disturbance; Denies Fever or Chills
EENT: Denies Tearing or Runny Nose
Respiratory: Reports No Symptoms; Denies Cough or Trouble Breathing
Cardiac: Reports No Symptoms; Denies Chest Pain, Diaphoresis or Palpitations
Abdomen/GI: Reports No Symptoms; Denies Abdominal Pain, Nausea or Vomiting
: Reports No Symptoms
Musculoskeletal: Reports No Symptoms
Skin: Reports No Symptoms
Neurological: Reports See HPI
Psych: Reports Anxiety and Other
Physical Exam
Vital Signs
Vital Signs
Temp Pulse Resp BP Pulse Ox
97.8 F 110 28 148/89 98
08/26/24 15:05 08/26/24 15:15 08/26/24 15:15 08/26/24 14:00 08/26/24 15:15
Physical Exam
General: Well Developed, Well Nourished and Appears in Distress
HEENT: NormoCephalic, Atraumatic and PERRLA (Mild mydriasis)
Respiratory: Clear; No Wheezes or Crackles
Cardiac: S1/S2, Regular Rhythm and Tachycardia; No Murmur or Gallop
GI: Soft, Non Tender, Non Distended and Normal Bowel Sounds
Genito-urinary: Deferred by me
Musculoskeletal: No Edema; No No Clubbing or Cyanosis
Skin: Warm and Dry
Neuro: Awake, Alert, Nonfocal/grossly intact and Slurred Speech; No Oriented or AO x 3
Psych: Confused, Agitated and Anxious; No Calm or Intact Judgment/Insight
Laboratory Results
-
08/26/24 02:07
08/26/24 02:07
Laboratory Results
Total Bilirubin 0.7 mg/dl (0.2-1.3) 08/26/24 02:07
AST 56 U/L (17-59) 08/26/24 02:07
ALT 40 U/L (0-50) 08/26/24 02:07
Alkaline Phosphatase 79 U/L (38-126) 08/26/24 02:07
Impression/Plan
-
Mr. Anderson is a 54-year-old gentleman with history of anxiety who was brought to the ED by with concern for erratic/agitated behavior tonight 08/13 3 and she states he has been 'falling all over the place tonight' with no head trauma in the setting
of kratom use/possible withdrawal.
# Altered mental status
agitated, likely opioid like withdrawal
Requiring multiple rounds of benzos without relief of agitation
unlikely infectious etiology WBC 10, lack of constitutional symptoms, lack of sick contacts
Unlikely metabolic, electrolytes within normal limits
Cannot rule out seizures, withdrawal, or overdose of kratom
CT head negative for intracranial abnormalities
Continue benzos, double dosage if patient not responding
Avoid Haldol
Consider sedation with with Precedex in ICU
One-to-one monitoring
Neurology consult
Psychiatry consult, appreciate recs
Subutex
Consider opioid withdrawal protocol
Poison control consult
Avoid Haldol, recheck EKG
Naloxone possibly helpful, limited data
Increase dosage of benzos, double dose if patient still agitated
Ultimately sedation may be best option
# Hypokalemia
K at 3.0
Electrolyte repletion
Recheck BMP
# STEPH
Creatinine 1.6, no baseline recorded here
Likely prerenal in the setting of diarrhea, vomiting and nausea
IV fluids
Recheck BMP
DVT prophylaxis
Subq hep
SCDs
CODE STATUS
Full code
[2024-08-26] MEDS: ZOFRAN 4 MG IV (17:44)
[2024-08-26] MEDS: HEPARIN 5000 UNITS SC (19:28)
[2024-08-26] MEDS: TYLENOL 1000 MG PO (20:50)
[2024-08-26] MEDS: ROXICODONE 20 MG PO (23:55)
[2024-08-27] VITALS (14 sets, daily range): BP systolic 109–158; BP diastolic 60–111
--- NOTE | 2024-08-27 00:08 | PTCARENOTE ---
patient continues to be restless, impulsive and confused at times. Patient complaining of 10/10 headache, see MAR. Patient expressing need to leave hospital because he can not sit still. Medicated patient per orders to help with withdraw symptoms
and pain. Patient maintained on 1:1 supervision.
[2024-08-27] MEDS: OXYCONTIN (CONTROLLED RELEASE) 40 MG PO ×3 (04:50→20:13)
[2024-08-27] MEDS: BELBUCA 300 MCG BUCCAL ×2 (04:50→08:15)
[2024-08-27 04:57] LABS: Hematocrit 40.0 % (39.0-52.0); Hemoglobin 14.2 g/dL (13.0-18.0); Mean Corp Hgb Conc. 35.5 g/dL (33.0-37.0); Mean Corpuscular Volume 93.2 fL (80.0-94.0); Platelet Count 221 10^3/uL (130-400); Red Cell Dist. Width 13.4 % (11.5-14.5)
[2024-08-27 05:37] LABS: Blood Urea Nitrogen 11 mg/dl (9-20); Calcium 8.3 mg/dl (8.4-10.2); Carbon Dioxide 23 mmol/L (22-30); Chloride 112 mmol/L (98-107); Estimated Creatinine Clearance 73 ml/min; Glucose 90 mg/dl (70-99); Magnesium 1.5 mg/dl (1.6-2.3); Potassium 3.2 mmol/L (3.5-5.1); Sodium 139 mmol/L (135-145); eGFR > 60.00
[2024-08-27] MEDS: KCL 40 MEQ PO (08:15)
[2024-08-27] MEDS: NSS 1000 IV ×2 (08:15→20:14)
[2024-08-27] MEDS: HEPARIN 5000 UNITS SC ×2 (08:15→20:13)
[2024-08-27] MEDS: ROXICODONE 20 MG PO (08:33)
--- NOTE | 2024-08-27 08:49 | PTCARENOTE ---
Patient is awake, alert at this start of the shift. COWS score is 10. Patient is cooperating and compliant with plan of care at this time stating that 'he feels better'. Patient is oriented, able to have full conversations. Complaining of a
headache, denying nausea. Verbalizing that he just 'wants to go to sleep'. Ordered toast for breakfast, drinking juice at this time.
[2024-08-27] MEDS: ZANAFLEX 2 MG PO ×3 (09:57→21:55)
--- NOTE | 2024-08-27 11:29 | PN.CDI ---
CDI
- -
CDI:
Physician Documentation Request
Admit Date: 08/26/24 09:28
Dear Doctor Mariaa,
Please review the following and provide your response in the progress notes.
Clinical Indicators:
H+P, 08/26
#agitated delirium
#Differential Diagnosis Includes:
#...presents with altered mental status, anxious, agitated,
#...mildly tachycardic, mildly hypertensive.
#History of kratom use according to .
#Concern for toxic ingestion, substance abuse,
#...concern for acute encephalopathy, closed head injury.
H+P, 08/26
#Altered mental status--agitated, likely opioid like withdrawal from Kraton withdrawal
#...(takes high doses which acts like opioids at higher doses)
#...--was in 4 point leather restraints-
#-ADMIT to IMU with LOW THRESHOLD to move to ICU
#...--Requiring multiple rounds of benzos without relief of agitation--
#Hypokalemia--replete--check mag
#STEPH with mild rhabdo--nontraumatic--follow CPK with IVF
# Altered mental status
#...agitated, likely opioid like withdrawal
#...Requiring multiple rounds of benzos without relief of agitation
#...unlikely infectious etiology WBC 10, lack of constitutional symptoms,
#...lack of sick contacts
#Unlikely metabolic, electrolytes within normal limits
#Cannot rule out seizures, withdrawal, or overdose of kratom
#CT head negative for intracranial abnormalities
Based on the above and your clinical assessment, please clarify the most likely etiology of the confusion/altered mental status.
Toxic metabolic encephalopathy
Acute encephalopathy only
Altered mental status only
Other (please specify)
Use of terms such as suspected, likely, concern for, or probable (associated with a specific diagnosis that is being evaluated, monitored, or treated as if it exists) are acceptable and can be coded in the inpatient setting, when documented at the
time of discharge.
Thank you,
Jessica Colorado RN BSN CCDS
CDI Specialist
Please contact via tiger text
Please use your independent medical judgment in providing your response.
[2024-08-27] MEDS: CATAPRES 0.2 MG PO ×2 (11:55→17:16)
[2024-08-27] MEDS: SUBUTEX 2 MG SL ×3 (11:56→21:55)
--- NOTE | 2024-08-27 12:06 | CM ---
Patient with Dx Altered mental status, likely opioid like withdrawal from Kratom. Room air. Psych consult noted. Receiving Subutex, Oxycodone. Per nurse; activity requires assist of 1, 1:[address]
Message from Resident Mariaa: patient is interested in [facility] for opioid withdrawal due to Kratom. Provided update that ROSITA will see patient again re; an outpatient program.
Referral to ROSITA Meredith. No update provided from Viri after patient seen.
Met with patient who states he spoke with ROSITA and says he will handle rehab needs later. ABIGAIL informed him that he is at risk if he goes home without committing to a substance abuse program. He is more receptive to an outpatient program as he
would like to return to work. 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 He is willing to talk with ROSITA again.
Spoke with ROSITA Garcia; informed him that [facility]i saw patient who declined service, and no c/b from Viri. Gianluca will see the patient this evening.
Plan follow up with ROSITA tomorrow re; drug rehab programs/resources.
--- NOTE | 2024-08-27 12:54 | W.PN.HOSP.TC ---
Addendum entered and electronically signed by Jessica Morris MD 08/27/24 13:51:
I saw and evaluated the patient independently. I reviewed the resident�s note and agree with findings and plan as documented by Dr. Leroy.
GENERAL: well developed, well nourished, male agitated, trying to get off the stretcher--was in 4 point leather restraints off since 7:30 AM
HEENT: NC/AT
HEART: regular rate and rhythm, +S1, +S2
LUNGS : clear to auscultation bilaterally
ABDOM: soft, nontender, nondistended, + bowel sounds
EXT: no cyanosis, clubbing, or edema
NEUROLOGIC: confused--not oriented--moves all extremities
Altered mental status--agitated, likely opioid like withdrawal from Kraton withdrawal (takes high doses which acts like opioids at higher doses)--was in 4 point leather restraints--much improved--cont benzos--head CT neg--Dr. Leryo spoke with poison
control, cont benzos with possibility of doubling dose and AVOIDING HALDOL--apprec psych--await neuro input--cont 1:1----may need precedex--cont opioid WD protocol--cont subutex
Hypokalemia--replete--check mag
STEPH with mild rhabdo--nontraumatic--follow CPK with IVF--n/v/d also contributing to prerenal etiology
DVT proph
CODE STATUS--Full code
Dr. Leroy also spoke with patient who indicated that she would like him to go to rehab upon discharge. Pt willing to speak with [facility]. CM notified.
Original Note:
Today's Communication/Plan
-
Clonidine 0.2 every 6
Tizanidine as needed
Continue withdrawal treatment
[facility] consult
Assessment / Plan
Assessment / Plan
Mr. Anderson is a 54-year-old gentleman with history of anxiety who was brought to the ED by with concern for erratic/agitated behavior tonight 08/13 3 and she states he has been 'falling all over the place tonight' with no head trauma in the setting
of kratom use/possible withdrawal. She adds that he is addicted to kratom and is unsure if he took extra kratom tonight or perhaps something else but notes that he has never acted as erratic and agitated as he is tonight. He left late last night to
drive and acquire some kratom from a local gas station but was unable to find some. According to him his last kratom use was earlier in the day of 08/25, where he took 1-1/2 30 mL bottles of kratom. The the serving size is 5 mL. According to
this has been a issue for him and was hospitalized last year for similar symptoms due to kratom use. reports that this has been an ongoing issue for many years and does not remember when he started using. He denies wanting to hurt himself but
cannot elaborate as to what he has taken tonight. According to , rarely drinks alcohol but does not know if he ingested any. There has been no report of fever recently, no cough. He has had a few loose stools for 2 days but no vomiting.
According to he has not been complaining of pain. According to PDMP. Patient was prescribed Valium 30 tablets August 01 and then additional 60 tablets August 20. Valium was prescribed by his PCP. He is also prescribed testosterone sporadically in
September, January and most recently May of this year along with a prescription for Pregnyl May of this year. In the ED he is quite anxious, agitated, restless and poorly cooperative. Able to briefly be redirected but remains significantly
agitated requiring multiple personnel at bedside to assist with calming patient and initially required 4 point restraints for patient as well as staff safety. He required Ativan 3 times and Haldol one-time. He still remained agitated. He was
tachycardic tachypneic hypertensive with a normal temperature. Labs showed a sodium of 140 potassium of 3.0 chloride 103 bicarb 30 BUN 13 creatinine 1.6 CPK 634 and a positive benzodiazepine screen on UDS. CT head showed no intracranial
abnormalities. EKG showed sinus tachycardia with a QTc of 482. Patient was admitted to IMU and started on opioid withdrawal protocol. Psychiatry was consulted along with neurology. Poison control was called and recommended sedation with avoidance
of Haldol and increasing benzodiazepines doubling it every administration until agitation is controlled. Patient received up to 3 doses of Valium on the night of 08/26 to control agitation. In the morning he felt much better and was alert and
oriented, and reported he was interested in outpatient rehab for kratom use.
# Altered mental status, improving
agitated, likely opioid like withdrawal, kratom
Requiring multiple rounds of benzos without relief of agitation
Cannot rule out seizures, withdrawal, or overdose of kratom
CT head negative for intracranial abnormalities
Continue benzos as needed, double dosage if patient not responding
One-to-one monitoring
Clonidine 0.2 agitation
Tizanidine as needed
Neurology consult
Psychiatry consult, appreciate recs
Continue Subutex
Consider opioid withdrawal protocol
Poison control consult
Avoid Haldol,
Repeat EKG QTc and 300s
Naloxone possibly helpful, limited data
benzos for agitation, double dose if patient still agitated
Ultimately sedation may be best option
# Hypokalemia, improving
K at 3.0, 3.2,
Magnesium and phosphate
Electrolyte repletion
Recheck BMP
# STEPH, improving
Creatinine 1.6, no baseline recorded here
Likely prerenal in the setting of diarrhea, vomiting and nausea
IV fluids
Recheck BMP
DVT prophylaxis
Subq hep
SCDs
CODE STATUS
Full code
Anticipated Discharge: 24 - 48 hours
Subjective/Interval History
-
Patient was seen at bedside today. He was doing a lot better, not feeling agitated or tremulous. He was alert and oriented and was able to tell us why he ended up in the hospital. He reported taking kratom precipitating his actions yesterday and
the night before. He expressed that he wants to stop using kratom for energy, and would be open to rehab, however when Loyda asked him about inpatient rehab he reported that he was not interested but may be interested in outpatient rehab. [facility]
is to follow-up. Date of Service: August 27, 2024
Objective Data
-
Labs:
Laboratory Results
08/27/24 08/27/24
04:49 12:18
WBC 10.6
Hgb 14.2
Hct 40.0
Plt Count 221
Sodium 139 Pending
Potassium 3.2 L Pending
Chloride 112 H Pending
Carbon Dioxide 23 Pending
BUN 11 Pending
Creatinine 1.2 Pending
Glucose 90 Pending
Calcium 8.3 L Pending
Vital Signs:
Vital Signs
Temp Pulse Resp BP Pulse Ox
97.9 F 93 20 142/85 95
08/27/24 11:00 08/27/24 11:55 08/27/24 10:15 08/27/24 11:55 08/27/24 10:15
I&O
08/26/24 08/27/24 08/28/24
06:59 06:59 06:59
Intake Total 240 / 240
Output Total 780 / 780 400 / 400
Balance -780 / -780 -160 / -160
Review of Systems
-
History Source: Patient
Constitutional: Reports No Symptoms; Denies Fever or Weight Loss
EENT: Reports No Symptoms Reported; Denies Sore Throat or Runny Nose
Respiratory: Reports No Symptoms; Denies Cough, Trouble Breathing or Wheezing
Cardiac: Reports No Symptoms; Denies Chest Pain or Palpitations
Abdomen/GI: Reports No Symptoms; Denies Abdominal Pain, Nausea or Vomiting
Genitourinary: Reports No Symptoms; Denies Dysuria
Skin: Reports No Symptoms
Neuro: Reports No Symptoms; Denies Dizzy or Headache
Physical Exam
-
General: Well Developed, Well Nourished, No Apparent Distress and Comfortable
HEENT: Normocephalic and Atraumatic
Respiratory: Clear to Auscultation; Negative Wheezes or Crackles
Cardiac: Regular Rhythm, S1/S2 and Tachycardic; Negative Murmur
GI: Soft, Nontender, Nondistended and Normal Bowel Sounds
Musculoskeletal: No Clubbing, No Cyanosis and No Edema
Skin: Warm and Dry; Negative Rash
Neuro: Awake, Alert and Oriented
Psych: Calm and Confused
[2024-08-27 14:09] LABS: Blood Urea Nitrogen 11 mg/dl (9-20); Calcium 8.6 mg/dl (8.4-10.2); Carbon Dioxide 20 mmol/L (22-30); Chloride 112 mmol/L (98-107); Estimated Creatinine Clearance 80 ml/min; Glucose 95 mg/dl (70-99); Magnesium 1.7 mg/dl (1.6-2.3); Potassium 4.0 mmol/L (3.5-5.1); Sodium 135 mmol/L (135-145); eGFR > 60.00
[2024-08-28] VITALS (11 sets, daily range): BP systolic 118–154; BP diastolic 83–102
[2024-08-28] MEDS: CATAPRES 0.2 MG PO ×5 (00:04→23:32)
[2024-08-28] MEDS: OXYCONTIN (CONTROLLED RELEASE) 40 MG PO (04:09)
[2024-08-28 04:40] LABS: Hematocrit 44.5 % (39.0-52.0); Hemoglobin 15.1 g/dL (13.0-18.0); Mean Corp Hgb Conc. 33.9 g/dL (33.0-37.0); Mean Corpuscular Volume 94.7 fL (80.0-94.0); Platelet Count 213 10^3/uL (130-400); Red Cell Dist. Width 13.2 % (11.5-14.5)
--- NOTE | 2024-08-28 04:48 | PTCARENOTE ---
No acute events overnight. Patient was calm, cooperative, and oriented. Remains a 1:1. Cows score of 8. PRN tizanidine given. Sleeping between care. Will continue to monitor.
[2024-08-28 05:03] LABS: Blood Urea Nitrogen 11 mg/dl (9-20); Calcium 9.1 mg/dl (8.4-10.2); Carbon Dioxide 24 mmol/L (22-30); Chloride 111 mmol/L (98-107); Estimated Creatinine Clearance 80 ml/min; Glucose 80 mg/dl (70-99); Potassium 3.8 mmol/L (3.5-5.1); Sodium 137 mmol/L (135-145); eGFR > 60.00
[2024-08-28] MEDS: SUBUTEX 2 MG SL (07:31)
[2024-08-28] MEDS: HEPARIN 5000 UNITS SC ×2 (07:31→20:32)
--- NOTE | 2024-08-28 09:55 | CM ---
Patient with Dx Altered mental status, likely opioid like withdrawal from Kratom. Room air. Psych consult noted. Receiving Subutex, Oxycodone, IVF. Per nurse; calm, cooperative, oriented, COWS 4, Remains on 1:1 Observation.
Spoke with ROSITA Garcia; Gianluca from [facility] saw the patient yesterday evening. The patient was receptive/accepted outpatient resources, and wants to do a virtual outpatient program. He agreed to follow up calls from [facility].
Plan home with Outpatient substance abuse program/resources and [facility] phone follow-up.
--- NOTE | 2024-08-28 09:58 | W.PN.HOSP.TC ---
Addendum entered and electronically signed by Jessica Morris MD 08/28/24 17:23:
I saw and evaluated the patient independently. I reviewed the resident�s note and agree with findings and plan as documented by Dr. Leroy.
GENERAL: well developed, well nourished, male in NAD
HEENT: NC/AT
HEART: regular rate and rhythm, +S1, +S2
LUNGS : clear to auscultation bilaterally
ABDOM: soft, nontender, nondistended, + bowel sounds
EXT: no cyanosis, clubbing, or edema
NEUROLOGIC: confused--not oriented--moves all extremities
Altered mental status--agitated, likely opioid like withdrawal from Kraton withdrawal (takes high doses which acts like opioids at higher doses)--was in 4 point leather restraints--much improved--not requiring as much benzos--head CT neg---apprec
psych--cont 1:1---cont opioid WD protocol--cont subutex
Hypokalemia--replete--check mag
STEPH with mild rhabdo--nontraumatic--follow CPK with IVF--n/v/d also contributing to prerenal etiology
DVT proph
CODE STATUS--Full code
Dr. Leroy also spoke with patient who indicated that she would like him to go to rehab upon discharge. Pt willing to speak with [facility]. CM notified.--Patient unwilling to go to inpatient rehab. Willing to do intensive outpatient rehab.
apparently frustrated with that. Dr. Leroy also explained to the as did Dr. Goel that we cannot force him to go to inpatient rehab.
Original Note:
Today's Communication/Plan
-
Continue supportive care
Psych consult
downgradse to med/surg
Assessment / Plan
Assessment / Plan
Mr. Anderson is a 54-year-old gentleman with history of anxiety who was brought to the ED by with concern for erratic/agitated behavior tonight 08/13 3 and she states he has been 'falling all over the place tonight' with no head trauma in the setting
of kratom use/possible withdrawal. She adds that he is addicted to kratom and is unsure if he took extra kratom tonight or perhaps something else but notes that he has never acted as erratic and agitated as he is tonight. He left late last night to
drive and acquire some kratom from a local gas station but was unable to find some. According to him his last kratom use was earlier in the day of 08/25, where he took 1-1/2 30 mL bottles of kratom. The the serving size is 5 mL. According to
this has been a issue for him and was hospitalized last year for similar symptoms due to kratom use. reports that this has been an ongoing issue for many years and does not remember when he started using. He denies wanting to hurt himself but
cannot elaborate as to what he has taken tonight. According to , rarely drinks alcohol but does not know if he ingested any. There has been no report of fever recently, no cough. He has had a few loose stools for 2 days but no vomiting.
According to he has not been complaining of pain. According to PDMP. Patient was prescribed Valium 30 tablets August 01 and then additional 60 tablets August 20. Valium was prescribed by his PCP. He is also prescribed testosterone sporadically in
September, January and most recently May of this year along with a prescription for Pregnyl May of this year. In the ED he is quite anxious, agitated, restless and poorly cooperative. Able to briefly be redirected but remains significantly
agitated requiring multiple personnel at bedside to assist with calming patient and initially required 4 point restraints for patient as well as staff safety. He required Ativan 3 times and Haldol one-time. He still remained agitated. He was
tachycardic tachypneic hypertensive with a normal temperature. Labs showed a sodium of 140 potassium of 3.0 chloride 103 bicarb 30 BUN 13 creatinine 1.6 CPK 634 and a positive benzodiazepine screen on UDS. CT head showed no intracranial
abnormalities. EKG showed sinus tachycardia with a QTc of 482. Patient was admitted to IMU and started on opioid withdrawal protocol. Psychiatry was consulted along with neurology. Poison control was called and recommended sedation with avoidance
of Haldol and increasing benzodiazepines doubling it every administration until agitation is controlled. Patient received up to 3 doses of Valium on the night of 08/26 to control agitation. In the morning he felt much better and was alert and
oriented, and reported he was interested in outpatient rehab for kratom use. Case management was consulted for [facility], patient preferred outpatient rehab versus inpatient. Psychiatry was consulted to assess patient. Talked with brother (Klever [phone]
[phone]) and about inpatient versus outpatient rehab.
# Altered mental status, improving
agitated, likely opioid like withdrawal, kratom
Requiring multiple rounds of benzos without relief of agitation
Cannot rule out seizures, withdrawal, or overdose of kratom
CT head negative for intracranial abnormalities
Continue benzos as needed, double dosage if patient not responding
One-to-one monitoring
Clonidine 0.2 agitation
Tizanidine as needed
Due to patients improving mental status Neurology consult was cancelled.
Psychiatry consult, appreciate recs
Continue Subutex
Poison control consult
Avoid Haldol,
Repeat EKG QTc and 300s
Naloxone possibly helpful, limited data
benzos for agitation, double dose if patient still agitated
Ultimately sedation may be best option
# Hypokalemia, improving
K at 3.0, 3.2, 3.8
Magnesium and phosphate
Electrolyte repletion
Recheck BMP
# STEPH, improving
Creatinine 1.6, no baseline recorded here
Likely prerenal in the setting of diarrhea, vomiting and nausea
IV fluids
Recheck BMP
DVT prophylaxis
Subq hep
SCDs
CODE STATUS
Full code
Anticipated Discharge: 24 - 48 hours
Subjective/Interval History
-
Patient reported feeling much better reporting no pain, sweating, tremors, or pains. Nursing reports that patient is still agitated, and does have diaphoresis without telling staff. He required 3 doses of tizanidine overnight. He did not require
any benzo. Upon review of his medications he reported taking diazapam for anxiety, testosterone, HGH, and pregnyl to build muscle. He endorsed no other medical conditions other than anxiety. He reported no allergies and reports that he has been
consuming Kratom for a year despite going to the ER last year due to Kratom induced panic attack. Discussed with patient about outpatient rehab, which he prefers over inpatient. Encourage patient to talk with about decision. Updated
about our conversation and talked with brother Klever to encourage inpatient rehab. Klever states that patient is close to baseline. Date of Service: August 28, 2024
Objective Data
-
Labs:
Laboratory Results
08/28/24
04:06
WBC 6.8
Hgb 15.1
Hct 44.5
Plt Count 213
Sodium 137
Potassium 3.8
Chloride 111 H
Carbon Dioxide 24
BUN 11
Creatinine 1.1
Glucose 80
Calcium 9.1
Vital Signs:
Vital Signs
Temp Pulse Resp BP Pulse Ox
97.6 F 78 17 124/86 99
08/28/24 07:09 08/28/24 08:00 08/28/24 08:28 08/28/24 08:00 08/28/24 08:00
I&O
08/27/24 08/28/24 08/29/24
06:59 06:59 06:59
Intake Total 2039 / 2039 2400 / 2400
Output Total 780 / 780 2400 / 2400
Balance -780 / -780 -360 / -360 2400 / 2400
Review of Systems
-
Unable to obtain full review of systems at this time due to: Acuity
History Source: Patient
Constitutional: Reports No Symptoms; Denies Fever, Fatigue or Night Sweats
EENT: Reports No Symptoms Reported; Denies Sore Throat or Runny Nose
Respiratory: Reports No Symptoms; Denies Cough, Trouble Breathing or Wheezing
Cardiac: Reports No Symptoms; Denies Chest Pain or Palpitations
Abdomen/GI: Reports No Symptoms; Denies Abdominal Pain, Nausea, Vomiting or Diarrhea
Genitourinary: Reports No Symptoms; Denies Dysuria
Musculoskeletal: Reports No Symptoms
Skin: Reports No Symptoms; Denies Itching
Neuro: Reports No Symptoms; Denies Dizzy or Headache
Physical Exam
-
General: Well Developed, Well Nourished and No Apparent Distress
HEENT: Normocephalic, Atraumatic and PERRLA
Respiratory: Clear to Auscultation; Negative Wheezes or Crackles
Cardiac: Regular Rhythm, S1/S2 and Tachycardic; Negative Murmur
GI: Soft, Nontender, Nondistended and Normal Bowel Sounds
Musculoskeletal: No Clubbing, No Cyanosis and No Edema
Skin: Warm and Dry
Neuro: Awake, Alert and Oriented
[2024-08-28] MEDS: SUBUTEX 4 MG SL ×3 (11:59→22:28)
[2024-08-28] MEDS: OXYCONTIN (CONTROLLED RELEASE) 20 MG PO ×2 (11:59→20:32)
--- NOTE | 2024-08-28 15:29 | PTCARENOTE ---
Patient AOx3. Forgetful and anxious. Bed alarm and chair alarm on and audible. 1:1 at bedside for safety. NSR on monitor. On RA. Assist x1 when OOB. Call arias within reach, bed in lowest position, and bed of wheels locked.
--- NOTE | 2024-08-28 16:40 | W.PN.UPDATE ---
Update Note
Progress Note Update
patient seen chart reviewed. spoke with nursing. brother at bedside. the patient and his brother present what happened as a singular event. while he had used kratom before never in the past did he have this reaction. he did say he had never used so
much and at this point is stating that he will not use it ever again. he is also willing to go to [facility] for d and a treatment and to help him in his resolve not to use kratom again. he says he was using it bc he felt tired and thought it would be a
better alternative than a 'five hour energy drink'. he says 'I don't even drink coffee.' brother added here that he and four of their sibs work together in the [employer] business and he could 'vouch ' for him. the patient denies any
psychiatric hx . he has always had difficulty sleeping . sometimes his thoughts race. he says no one has suggested he is bipolar. he has not experienced significant depression. he has never been suicidal. there is nothing currently to suggest
psychosis. he was very agitated in the er last night and required ativan and haldol for sedation. he has received buprenorphine today and microdosing of opiates.
medical cat scan and ecg normal. blood work remarkable only for decreased potassium which was addressed. elevated cpk at 320 tox + for bzp. patient had received significant scrips for valium from his pcp. he also told me he had received abilify
5 mg bid but he did not take it bc after taking it once he did not like how he felt.
past psych denies any hx of psych issues but see medical above. he had recevied abilify and valium from his pcp for 'anxiety' (pcp did not know of kratom use)
fh denied
social has four kids lives w six sibs works w them in [employer] business
mse alert ox3 cooperative speech and thought process appear normal now no psychosis mood is euthymic affect appropriate denies si aver intell insight judgment fairly poor given kratom usage
dx tme secondary to kratom intoxication resolved now
recommendations patient is willing to go to [facility] . has expressed wish for in patient but he refuses and there is no way to make him go. he says he is committed to iop on the one hand but also minimizes his dysfunction on the other. in any case
we cannot make him stay. discussed with him the possibility that there could be an underlying bipolar illness here given lssue here given sleep issues and sometimes racing thoughts. he should see a psychiatrist to assess especially if he continue to
have difficulty w sobriety. if he goes to an iop they will have likely psych on staff to assess him. i did call his but she was at the [facility] and could not talk tome. i did tell her we cannot force him to go to in patient rehab. if he cannot go
home as she says, brother says he can stay with him.
--- NOTE | 2024-08-28 16:55 | W.PN.UPDATE ---
Update Note
Progress Note Update
i did talk to again who expresses her concern for patient's substance use. she said he has been treated for 'anxiety' by his pcp. she seems to still be traumatized by the level of patient's agitation last night. she alleges he has used a
tremendous amount of kratom in the past but never had an incident like this. informed her that he does say he will go to intensive out patient treatment.
--- NOTE | 2024-08-28 18:22 | PTCARENOTE ---
Verbal report give to Will RN from 4W. Patient transferred via wheelchair with 1:1. Patient belongings transferred with patient.
--- NOTE | 2024-08-28 18:40 | PTCARENOTE ---
pt arrived from IMU. Pt made comfortable in room. Appropriately responsive and pleasant. Oriented to room, VS taken, 1:1 present, call arias in reach.
[2024-08-28] MEDS: ZANAFLEX 2 MG PO (23:31)
[2024-08-29] MEDS: OXYCONTIN (CONTROLLED RELEASE) 20 MG PO (03:48)
[2024-08-29] MEDS: CATAPRES PO (05:42)
[2024-08-29 06:16] VITALS: BP 102/61
[2024-08-29] MEDS: ZANAFLEX 2 MG PO (06:18)
[2024-08-29 06:56] LABS: Hematocrit 44.6 % (39.0-52.0); Hemoglobin 15.6 g/dL (13.0-18.0); Mean Corp Hgb Conc. 35.0 g/dL (33.0-37.0); Mean Corpuscular Volume 93.1 fL (80.0-94.0); Platelet Count 261 10^3/uL (130-400); Red Cell Dist. Width 12.5 % (11.5-14.5)
[2024-08-29 07:17] LABS: Blood Urea Nitrogen 14 mg/dl (9-20); Calcium 9.7 mg/dl (8.4-10.2); Carbon Dioxide 24 mmol/L (22-30); Chloride 106 mmol/L (98-107); Estimated Creatinine Clearance 80 ml/min; Glucose 77 mg/dl (70-99); Potassium 3.7 mmol/L (3.5-5.1); Sodium 135 mmol/L (135-145); eGFR > 60.00
[2024-08-29 07:30] VITALS: BP 112/58
[2024-08-29] MEDS: HEPARIN 5000 UNITS SC (10:10)
[2024-08-29] MEDS: SUBUTEX 4 MG SL (10:10)
--- NOTE | 2024-08-29 11:02 | W.PN.HOSP.TC ---
Addendum entered and electronically signed by Jessica Morris MD 08/29/24 13:27:
I saw and evaluated the patient independently. I reviewed the resident�s note and agree with findings and plan as documented by Dr. Leroy.
GENERAL: well developed, well nourished, male in NAD
HEENT: NC/AT
HEART: regular rate and rhythm, +S1, +S2
LUNGS : clear to auscultation bilaterally
ABDOM: soft, nontender, nondistended, + bowel sounds
EXT: no cyanosis, clubbing, or edema
NEUROLOGIC: confused--not oriented--moves all extremities
Altered mental status--resolved--agitated, likely opioid like withdrawal from Kraton withdrawal (takes high doses which acts like opioids at higher doses)--was in 4 point leather restraints--much improved--not requiring as much benzos--head CT
neg---apprec psych--stop 1:1---cont opioid WD protocol--stop subutex
Hypokalemia--replete--check mag
STEPH with mild rhabdo--nontraumatic--improved--n/v/d also contributing to prerenal etiology
DVT proph
CODE STATUS--Full code
Dr. Leroy also spoke with patient who indicated that she would like him to go to rehab upon discharge. Pt willing to speak with [facility]. CM notified.--Patient unwilling to go to inpatient rehab. Willing to do intensive outpatient rehab.
apparently frustrated with that. Dr. Leroy also explained to the as did Dr. Goel that we cannot force him to go to inpatient rehab.
Original Note:
Today's Communication/Plan
-
Patient medically stable for discharge
Assessment / Plan
Assessment / Plan
Mr. Anderson is a 54-year-old gentleman with history of anxiety who was brought to the ED by with concern for erratic/agitated behavior tonight 08/13 3 and she states he has been 'falling all over the place tonight' with no head trauma in the setting
of kratom use/possible withdrawal. She adds that he is addicted to kratom and is unsure if he took extra kratom tonight or perhaps something else but notes that he has never acted as erratic and agitated as he is tonight. He left late last night to
drive and acquire some kratom from a local gas station but was unable to find some. According to him his last kratom use was earlier in the day of 08/25, where he took 1-1/2 30 mL bottles of kratom. The the serving size is 5 mL. According to
this has been a issue for him and was hospitalized last year for similar symptoms due to kratom use. reports that this has been an ongoing issue for many years and does not remember when he started using. He denies wanting to hurt himself but
cannot elaborate as to what he has taken tonight. According to , rarely drinks alcohol but does not know if he ingested any. There has been no report of fever recently, no cough. He has had a few loose stools for 2 days but no vomiting.
According to he has not been complaining of pain. According to PDMP. Patient was prescribed Valium 30 tablets August 01 and then additional 60 tablets August 20. Valium was prescribed by his PCP. He is also prescribed testosterone sporadically in
September, January and most recently May of this year along with a prescription for Pregnyl May of this year. In the ED he is quite anxious, agitated, restless and poorly cooperative. Able to briefly be redirected but remains significantly
agitated requiring multiple personnel at bedside to assist with calming patient and initially required 4 point restraints for patient as well as staff safety. He required Ativan 3 times and Haldol one-time. He still remained agitated. He was
tachycardic tachypneic hypertensive with a normal temperature. Labs showed a sodium of 140 potassium of 3.0 chloride 103 bicarb 30 BUN 13 creatinine 1.6 CPK 634 and a positive benzodiazepine screen on UDS. CT head showed no intracranial
abnormalities. EKG showed sinus tachycardia with a QTc of 482. Patient was admitted to IMU and started on opioid withdrawal protocol. Psychiatry was consulted along with neurology. Poison control was called and recommended sedation with avoidance
of Haldol and increasing benzodiazepines doubling it every administration until agitation is controlled. Patient received up to 3 doses of Valium on the night of 08/26 to control agitation. In the morning he felt much better and was alert and
oriented, and reported he was interested in outpatient rehab for kratom use. Case management was consulted for [facility], patient preferred outpatient rehab versus inpatient. Psychiatry was consulted to assess patient. Talked with brother (Klever Goss
[phone]) and about inpatient versus outpatient rehab. After conversation with psychiatry patient amenable to intensive outpatient rehab. Psychiatry also recommends patient see psychiatrist for possible underlying psychiatric disorder.
# Altered mental status, improving
agitated, likely opioid like withdrawal, kratom
Requiring multiple rounds of benzos without relief of agitation
Cannot rule out seizures, withdrawal, or overdose of kratom
CT head negative for intracranial abnormalities
Continue benzos as needed, double dosage if patient not responding
One-to-one monitoring
Clonidine 0.2
Tizanidine as needed
Due to patients improving mental status Neurology consult was cancelled.
Psychiatry consult, appreciate recs
Continue Subutex
Poison control consult
# Hypokalemia, improving
K at 3.0, 3.2, 3.8
Magnesium and phosphate
Electrolyte repletion
Recheck BMP
# STEPH, improving
Creatinine 1.6, no baseline recorded here
Likely prerenal in the setting of diarrhea, vomiting and nausea
IV fluids
Recheck BMP
DVT prophylaxis
Subq hep
SCDs
CODE STATUS
Full code
Anticipated Discharge: Today
Subjective/Interval History
-
Patient reported feeling good. He required 1 tizanidine overnight. He had no other complaints. Date of Service: August 29, 2024
Objective Data
-
Labs:
Laboratory Results
08/29/24
06:20
WBC 7.2
Hgb 15.6
Hct 44.6
Plt Count 261 D
Sodium 135
Potassium 3.7
Chloride 106
Carbon Dioxide 24
BUN 14
Creatinine 1.1
Glucose 77
Calcium 9.7
Vital Signs:
Vital Signs
Temp Pulse Resp BP Pulse Ox
97.4 F 83 16 112/58 100
08/29/24 07:30 08/29/24 07:30 08/29/24 07:30 08/29/24 07:30 08/29/24 07:30
I&O
08/28/24 08/29/24 08/30/24
06:59 06:59 06:59
Intake Total 2040 / 2040 3720 / 3720
Output Total 2400 / 2400 400 / 400
Balance -360 / -360 3320 / 3320
Review of Systems
-
History Source: Patient
All other systems: Reviewed and negative
Constitutional: Reports No Symptoms
EENT: Reports No Symptoms Reported
Respiratory: Reports No Symptoms
Cardiac: Reports No Symptoms
Abdomen/GI: Reports No Symptoms
Genitourinary: Reports No Symptoms
Musculoskeletal: Reports No Symptoms
Skin: Reports No Symptoms
Neuro: Reports No Symptoms
Physical Exam
-
General: Well Developed, Well Nourished, No Apparent Distress and Comfortable
HEENT: Normocephalic and Atraumatic
Respiratory: Clear to Auscultation; Negative Wheezes, Rhonchi or Crackles
Cardiac: Regular Rhythm and S1/S2; Negative Murmur or Rub
Breast: Deferred by me
GI: Soft, Nontender, Nondistended and Normal Bowel Sounds
Musculoskeletal: No Clubbing, No Cyanosis and No Edema
Skin: Warm, Dry and Rash
Neuro: Awake, Alert, Oriented and AO x 3
Psych: Calm
--- NOTE | 2024-08-29 11:51 | W.DCSUMMARY ---
Addendum entered and electronically signed by Jessica Morris MD 08/29/24 13:29:
Read, reviewed, and agree. See same day progress note for additional details. Time spent coordinating care, DC planning, review of DC plan of care with resident, transition of care, review of records in EMR, med rec, consults, notes, d/w
consultants, nursing, family, and CM = 31 minutes
Original Note:
Discharge Summary
Discharge Data
Date of Admission: 08/26/24
Date of Discharge: 08/29/24
-
Pending Results: No
Hospital Course
Discharging Physician : Dr. Morris, Dr. Leroy
Disposition : Home
Primary care physician : Brice Sanchez
Principal Discharge diagnosis : Altered mental status, acute opioid withdrawal, kratom withdrawal
Chronic Discharge diagnosis : Anxiety
Hospital Course :
Mr. Anderson is a 54-year-old gentleman with history of anxiety who was brought to the ED by with concern for erratic/agitated behavior tonight 08/13 3 and she states he has been 'falling all over the place tonight' with no head trauma in the setting
of kratom use/possible withdrawal. She adds that he is addicted to kratom and is unsure if he took extra kratom tonight or perhaps something else but notes that he has never acted as erratic and agitated as he is tonight. He left late last night to
drive and acquire some kratom from a local gas station but was unable to find some. According to him his last kratom use was earlier in the day of 08/25, where he took 3-4 30 mL bottles of kratom. The the serving size is 5 mL. According to
this has been a issue for him and was hospitalized last year for similar symptoms due to kratom use. reports that this has been an ongoing issue for many years and does not remember when he started using. He denies wanting to hurt himself but
cannot elaborate as to what he has taken tonight. According to , rarely drinks alcohol but does not know if he ingested any. There has been no report of fever recently, no cough. He has had a few loose stools for 2 days but no vomiting.
According to he has not been complaining of pain. According to PDMP. Patient was prescribed Valium 30 tablets August 01 and then additional 60 tablets August 20. Valium was prescribed by his PCP. He is also prescribed testosterone hGH sporadically
in September, January and most recently May of this year along with a prescription for Pregnyl May of this year.
In the ED he is quite anxious, agitated, restless and poorly cooperative. Able to briefly be redirected but remains significantly agitated requiring multiple personnel at bedside to assist with calming patient and initially required 4 point
restraints for patient as well as staff safety. He required Ativan 3 times and Haldol one-time. He still remained agitated. He was tachycardic tachypneic hypertensive with a normal temperature. Labs showed a sodium of 140 potassium of 3.0
chloride 103 bicarb 30 BUN 13 creatinine 1.6 CPK 634 and a positive benzodiazepine screen on UDS. CT head showed no intracranial abnormalities. EKG showed sinus tachycardia with a QTc of 482. Patient was admitted to IMU and started on opioid
withdrawal protocol. Psychiatry was consulted along with neurology. Poison control was called and recommended sedation with avoidance of Haldol and increasing benzodiazepines doubling it every administration until agitation is controlled. Patient
received up to 3 doses of Valium on the night of 08/26 to control agitation. Patient's potassium was repleted. In the morning he felt much better and was alert and oriented, and reported he was interested in outpatient rehab for kratom use. Case
management was consulted for [facility], patient preferred outpatient rehab versus inpatient. Psychiatry was consulted to assess patient. Talked with brother (Klever) and about inpatient versus outpatient rehab. After conversation with psychiatry
patient amenable to intensive outpatient rehab. Psychiatry also recommends patient see psychiatrist for possible underlying psychiatric disorder. On discharge, vital signs afebrile normotensive. Labs all within normal limits. Patient medically
stable for discharge.
Important imaging findings :
08/26 CT head
IMPRESSION:
No acute intracranial abnormality.
Procedure findings :
08/26 EKG
SINUS TACHYCARDIA
OTHERWISE NORMAL ECG
WHEN COMPARED WITH ECG OF 26-AUG-2024 02:43,
NO SIGNIFICANT CHANGE WAS FOUND
08/27 EKG
NORMAL SINUS RHYTHM
NORMAL ECG
WHEN COMPARED WITH ECG OF 26-AUG-2024 20:27,
NO SIGNIFICANT CHANGE WAS FOUND
Discharge Plan
-
Patient Disposition: Home (Routine Discharge)
Discharge Diagnosis/Procedures: Acute opioid (kratom) withdrawal, altered mental status, Acute Kidney Injury
Condition: Good
Diet: As tolerated
Activity: As tolerated
Driving Restrictions: As prior to admission
Bathing Restrictions: None
Referrals:
Brice Sanchez MD [Non-Admitting Privileges, Family Practice] - in less than 1 week
UNKNOWN - PT DOES,NOT KNOW [Family Provider]
Prescriptions:
Held
diazepam 5 mg Tablet
5 mg PO BIDPRN PRN (Reason: anixety)
Hold Instructions: Resume on 09/12/24. Hold until seen by PCP
Discharge Orders:
Discharge Patient (As Directed); Ordered 08/29/24
Ordered By: Aki Leroy
Discharge Date and Time
Print Language: GEORGIAN
--- NOTE | 2024-08-29 12:30 | PTCARENOTE ---
12:00 Explain to pt able to be discharge to home today. One to one observation discontinued. 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
--- NOTE | 2024-08-29 13:34 | CM ---
Patient seen at bedside with physician on . Patient is for discharge home today and states that he is going home with his family. Patient stated that he is following up with [facility], but did not know what the next steps were. CM called to
[facility] and they will follow up with patient again. Patient is to follow up with outpatient therapy. Patient states he has a ride home. Psychiatry also aware of plan. CM will continue to follow for discharge planning needs.
PLan; home with no needs.
[2024-08-29 14:29] VITALS: BP 118/96
[2024-08-29] MEDS: CATAPRES 0.2 MG PO (14:45)
== END 2024-08-29 15:38 | disposition home or self-care (01) | DRG 896 ==
LOC: 4 WEST ACU 09:28
PROVIDERS: Student in an Organized Health Care Education/Training Program; ADMITTING PHYSICIAN Internal Medicine; CONSULT PHYSICIAN Psychiatry & Neurology Psychiatry; EMERGENCY PHYSICIAN Emergency Medicine
DX: F19.239 Other psychoactive substance dependence with withdrawal, unspecified (principal); G93.41 Metabolic encephalopathy; N17.9 Acute kidney failure, unspecified; T50.904A Poisoning by unspecified drugs, medicaments and biological substances, undetermined, initial encounter; F41.9 Anxiety disorder, unspecified; E87.6 Hypokalemia; R29.6 Repeated falls; Z78.1 Physical restraint status; Z90.49 Acquired absence of other specified parts of digestive tract
CPT/HCPCS: 70450; 80048; 80053; 80143; 80179; 80306; 80307; 81003; 81015; 82077; 82550; 83735; 84100; 85025; 85027; 93005; 96374; 96375; 96376; 99291